=== PATIENT | male | born 1950 | race Caucasian/White ===

== ENCOUNTER 2025-10-19 00:25 | Inpatient (IN) | payer MEDICARE, OTHER ==
[2025-10-19] MEDS ORDERED: Glucagon 1 MG/ML KIT IM PRN (01:25)
[2025-10-19] MEDS ORDERED: Dextrose 50% Abboject 50 ML SYRINGE SLOW IVP PRN (01:25)
[2025-10-19] MEDS ORDERED: Acetaminophen 325 MG TAB PO PRN (01:25)
[2025-10-19] MEDS ORDERED: Ondansetron PF 4 MG/2 ML Vial IVP PRN (01:27)
[2025-10-19] MEDS ORDERED: hydrALAZINE 20 MG/ML VIAL SLOW IVP PRN (01:27)
[2025-10-19 02:08] VITALS: BMI 51.6
[2025-10-19 05:52] LABS: #Basophils Less than 0.03 10x3/uL (0.0-0.2); #Eosinophils Less than 0.03 10x3/uL (0.0-0.7); #Monocytes 0.79 10x3/uL (0.11-0.59); #Neutrophils 5.93 10x3/uL (1.40-6.50); %Basophils 0.2 % (0.0-1.0); %Eosinophils 0.1 % (0.0-10.0); %Lymphocytes 21.4 % (21.0-51.0); %Monocytes 9.2 % (0.0-10.0); %Neutrophils 68.8 % (42.0-75.0); Hematocrit 36.1 % (42.0-52.0); Hemoglobin 12.1 g/dL (14.0-18.0); Mean Corpuscular Hemoglobin 32.0 pg (27.0-31.0); Mean Corpuscular Volume 95.5 fL (78.0-98.0); Platelet Count 117 10x3/uL (130-400); Red Blood Cell (RBC) Count 3.78 mill/uL (4.70-6.10); White Blood Cell (WBC) Count 8.63 10x3/uL (4.8-10.8)
[2025-10-19 06:01] LABS: Anion Gap 12 mmol/L (10-20); BUN (Urea Nitrogen) 16 mg/dL (8.4-25.7); Calc. Creatinine Clearance 166 mL/min (70-130); Calcium 8.9 mg/dL (7.8-10.44); Carbon Dioxide 23 mmol/L (23-31); Chloride 107 mmol/L (98-107); Glucose 134 mg/dL (83-110); Potassium 3.8 mmol/L (3.5-5.1); Sodium 138 mmol/L (136-145)
[2025-10-19] MEDS: Senokot S 8.6-50 MG TAB PO SCH (08:44)
[2025-10-19] MEDS: Ketorolac Tromethamine 30 MG (1 mL) VIAL IVP SCH (11:18)
[2025-10-19] MEDS: Methocarbamol 500 MG TAB PO PRN (15:06)
[2025-10-19] MEDS: Melatonin 3 MG TAB PO PRN (20:21)
[2025-10-20 05:21] LABS: Anion Gap 10 mmol/L (10-20); BUN (Urea Nitrogen) 18 mg/dL (8.4-25.7); Calc. Creatinine Clearance 122 mL/min (70-130); Calcium 8.5 mg/dL (7.8-10.44); Carbon Dioxide 26 mmol/L (23-31); Chloride 105 mmol/L (98-107); Glucose 102 mg/dL (83-110); Potassium 3.3 mmol/L (3.5-5.1); Sodium 138 mmol/L (136-145)
[2025-10-20 05:39] LABS: #Basophils 0.03 10x3/uL (0.0-0.2); #Eosinophils 0.14 10x3/uL (0.0-0.7); #Monocytes 0.45 10x3/uL (0.11-0.59); #Neutrophils 2.56 10x3/uL (1.40-6.50); %Basophils 0.7 % (0.0-1.0); %Eosinophils 3.2 % (0.0-10.0); %Lymphocytes 27.5 % (21.0-51.0); %Monocytes 10.2 % (0.0-10.0); %Neutrophils 58.2 % (42.0-75.0); Hematocrit 30.7 % (42.0-52.0); Hemoglobin 10.0 g/dL (14.0-18.0); Mean Corpuscular Hemoglobin 31.5 pg (27.0-31.0); Mean Corpuscular Volume 96.8 fL (78.0-98.0); Platelet Count 82 10x3/uL (130-400); Red Blood Cell (RBC) Count 3.17 mill/uL (4.70-6.10); White Blood Cell (WBC) Count 4.40 10x3/uL (4.8-10.8)
[2025-10-20] MEDS ORDERED: Magnesium 2 GM/50 ML(in water) 2 GM in Premix 1 BAG IVPB PRN (07:45)
[2025-10-20] MEDS ORDERED: PHOS-NAK 1 PKT PACK PO PRN (07:45)
[2025-10-20] MEDS ORDERED: Potassium Chloride 20 MEQ in Premix 1 BAG IVPB PRN (07:45)
[2025-10-20] MEDS: Pantoprazole 40 MG DR.TAB PO SCH (08:30)
[2025-10-20] MEDS: Lisinopril 20 MG TAB PO SCH (08:31)
[2025-10-20] MEDS: Triamterene/Hydrochlorothiazide 37.5 mg/25 mg Tablet PO SCH (08:31)
[2025-10-20] MEDS: Electrolyte Replacement Protocol 1 EACH FS ONE (09:10)
[2025-10-20 11:55] VITALS: BP 161/78; TEMP 98.4
== END 2025-10-20 13:20 | disposition home or self-care (01) | DRG 605 ==
LOC: ERS 00:25 → SURG B 01:25
PROVIDERS: ADMIT Surgery; ATTEND Surgery
DX: S70.11XA Contusion of right thigh, initial encounter (principal); I10 Essential (primary) hypertension; Z98.890 Other specified postprocedural states; Z88.0 Allergy status to penicillin
CPT/HCPCS: 36415; 80048; 82550; 83036; 85025; 99285; G0390; J1885; J2270; J7120